=== PATIENT | female | born 1990 | race Caucasian/White ===

== ENCOUNTER 2021-03-26 14:48 | Emergency (ER) | payer MEDICAID, OTHER ==
[~2021-03-26] VITALS: Ht 152.4 cm; Wt 45.4 kg
--- NOTE | 2021-03-26 15:50 | NUR ---
LABS DRAWN, PENDING RESULTS
--- NOTE | 2021-03-26 15:50 | NUR ---
PATIENT CAME IN BY AMBULANCE FROM HOME FROM A POSSIBLE OVERDOSE. PATIENT IS AWAKE AND ORIENTED ENOUGH TO SPEAK. PATIENT HISTORY IS UNKNOWN AT THIS TIME. PATIENT DENIES SOB, N/V/D AND CHEST PAIN. PATIENT IN BED, SLEEPING. PENDING MD ORDERS.
--- NOTE | 2021-03-26 16:00 | NUR ---
18 G ESTABLISHED IN THE LEFT FOREARM
[2021-03-26 16:08] LABS: HEMATOCRIT 38.2 % (31.2-41.9); MEAN CORPUSCULAR HEMOGLOBIN 28.4 uug (24.7-32.8); MEAN CORPUSCULAR VOLUME 84.4 fL (75.5-95.3); PLATELET COUNT (AUTO) 223 K/uL (179-408)
[2021-03-26 16:20] LABS: CARBON DIOXIDE 30 mmol/L (21-32); CHLORIDE 101 mmol/L (98-107); CREATININE 0.9 mg/dL (0.6-1.3); GLUCOSE 106 mg/dL (74-106); POTASSIUM 3.7 mmol/L (3.5-5.1); UREA NITROGEN, BLOOD 16 mg/dL (7-18)
[2021-03-26 16:23] LABS: ETHANOL < 3 MG/DL (0-0)
[2021-03-26 16:56] LABS: ALANINE AMINOTRANSFERASE 28 U/L (14-59); ALKALINE PHOSPHATASE 55 U/L (50-136); ASPARTATE AMINOTRANSFERASE 28 U/L (15-37); BILIRUBIN,DIRECT 0.1 mg/dL (0.0-0.2); BILIRUBIN,TOTAL 0.3 mg/dL (0.2-1.0); TOTAL PROTEIN, SERUM 6.5 g/dL (6.4-8.2)
[2021-03-26] MEDS ORDERED: NALO4SPR NS (18:50)
--- NOTE | 2021-03-26 18:59 | NUR ---
PATIENT BEING DISCHARGED BACK HOME AND GIVEN PRESCRIPTIONS. PATIENT VERBALIZES UNDERSTANDING. PATIENT IS AMBULATORY, STEADY GAIT, AAOX4, DENIES SOB, NAD NOTED, DENIES N/V/D. IV DC'D, ARMBAND REMOVED. PATIENT LEFT WITH BELONGINS.
== END 2021-03-26 19:12 | disposition home or self-care (01) ==
LOC: ER 14:48
DX: T40.601A Poisoning by unspecified narcotics, accidental (unintentional), initial encounter (principal); R55 Syncope and collapse; R52 Pain, unspecified; Y92.410 Unspecified street and highway as the place of occurrence of the external cause; R03.0 Elevated blood-pressure reading, without diagnosis of hypertension; F10.10 Alcohol abuse, uncomplicated; Y90.0 Blood alcohol level of less than 20 mg/100 ml
CPT/HCPCS: 36415; 70030-TC; 85025; 93005; A4663; G0480

== ENCOUNTER 2025-01-09 14:44 | Emergency (ER) | payer BC, OTHER ==
[~2025-01-09] VITALS: Ht 154.9 cm; Wt 49.4 kg
[~2025-01-09 14:44] MED LIST: AMOX-427 PO; NALO4SPR NS
[2025-01-09 15:18] VITALS: BP 123/70
[2025-01-09 17:37] LABS: PLATELET COUNT (AUTO) 266 K/uL (179-408); RED BLOOD CELL COUNT(AUTO) 4.88 MIL/uL (3.63-4.92); RED CELL DISTRIBUTION WIDTH 15.1 % (12.3-17.7); WHITE BLOOD COUNT (AUTO) 10.1 K/uL (3.8-11.8)
[2025-01-09 17:42] LABS: CREATININE 1.0 mg/dL (0.6-1.3); SODIUM SERUM 143.0 mmol/L (136-145); UREA NITROGEN, BLOOD 12.0 mg/dL (7-18)
[2025-01-09 18:10] VITALS: BP 123/70; O2SAT 100
== END 2025-01-09 18:11 | disposition home or self-care (01) ==
LOC: ER 14:44
DX: S00.531A Contusion of lip, initial encounter (principal); R55 Syncope and collapse; F17.200 Nicotine dependence, unspecified, uncomplicated; F41.9 Anxiety disorder, unspecified; F32.A Depression, unspecified; M25.512 Pain in left shoulder; Z60.2 Problems related to living alone; W18.39XA Other fall on same level, initial encounter; Y93.89 Activity, other specified; Y92.89 Other specified places as the place of occurrence of the external cause; Y99.8 Other external cause status
CPT/HCPCS: 36415; 83735; 85025; A4606; A4663